=== PATIENT | female | born 1930 | race Caucasian/White ===

== ENCOUNTER 2017-10-05 12:04 | Emergency (ER) | payer MEDICARE, OTHER ==
--- NOTE | 2017-10-05 13:04 | CT ---
Head CT Technique: Multiple axial sections through the brain were obtained. Intravenous contrast was not utilized. Comparison: Prior head CT study of 07/20/15. Findings: Soft tissue swelling and hematoma is seen within the posterior right scalp. Ventricles along with basal cisterns and sulci over the convexities are mildly prominent. Diminished density is noted within the periventricular and subcortical white matter compatible with mild small vessel ischemic demyelination change. No other abnormal parenchymal densities are seen. No evidence of intracranial hemorrhage. No midline shift or mass effect is seen. Bone window settings were reviewed which shows no acute calvarial abnormality. Impression: 1. Soft tissue swelling and hematoma within the posterior right scalp. 2. Senescent change as noted above. 3. No acute intracranial abnormality is identified. No skull fracture is seen. Diagnostic code #3
--- NOTE | 2017-10-05 14:06 | CR ---
Chest: AP view of the chest was obtained. Comparison: No prior chest x-ray. Heart size is normal. Mild tortuosity of the thoracic aorta is seen. Central lung markings are slightly increased believed to be accentuated from AP technique. Lungs otherwise are clear. Bony structures are osteopenic. Surgical clips likely from prior cholecystectomy are seen within the upper right abdomen. Impression: 1. Nothing acute is appreciated on AP chest x-ray. Diagnostic code #2
--- NOTE | 2017-10-05 14:06 | CR ---
Pelvis and right hip: AP view of the pelvis was obtained as well as crosstable lateral view of the right hip. Comparison: Previous left hip study of 01/14/10. Bilateral hip prosthesis are noted which show normal alignment. Fractures are seen within the superior right pubic ramus as well as within the superior and inferior left pubic ramus. These appear to be acute. Incidental sclerosis within the pubic symphysis is noted. No additional fracture or other abnormality is appreciated. Impression: 1. Pubic rami fracture as noted above. 2. Bilateral hip prosthesis which are normal in alignment. 3. No other acute abnormality is appreciated. Diagnostic code #3
[2017-10-05] MEDS ORDERED: traMADol 50 MG Tab PO ONE (14:50)
--- NOTE | 2017-10-05 14:50 | EDM.PDOC ---
ED HPI GENERAL MEDICAL PROBLEM - General Chief Complaint: Lower Extremity Injury/Pain Stated Complaint: FALL/HIP INJURY Time Seen by Provider: 10/05/17 12:25 Source of Information: Reports: Patient, Family (daughter) History Limitations: Reports: No Limitations - History of Present Illness INITIAL COMMENTS - FREE TEXT/NARRATIVE: 87-year-old female presents for evaluation and treatment of injury sustained from a fall. Patient reports around 0900 this morning she was in the garage when she stumbled. She is primarily complaining of pain to her pelvis and both hips. States the pain radiates into her groin. She has a skin tear to her right arm and she also bumped her head. She is reports significant pain with standing and walking. Unsure if she had any syncope. No chest pain, neck pain, nausea or vomiting. She states that she did possibly feel dizzy. Patient reports and she fell she landed on her right side. Patient has a history of thrombocytopenia. She currently takes baby aspirin daily. No other blood thinners. Patient has a history of bilateral hip replacements. Onset: Today Location: Reports: Pelvis Pelvic Pain Score (Numeric/FACES): 6 - Related Data Allergies Allergy/AdvReac Type Severity Reaction Status Date / Time No Known Allergies Allergy Verified 10/05/17 12:14 Past Medical History - Past Health History Medical/Surgical History: Denies Medical/Surgical History Cardiovascular History: Reports: High Cholesterol, Hypertension Genitourinary History: Reports: UTI, Recurrent Psychiatric History: Reports: None - Past Surgical History GI Surgical History: Reports: Cholecystectomy Musculoskeletal Surgical History: Reports: Hip Replacement Social & Family History - Tobacco Use Smoking Status *Q: Unknown Ever Smoked Review of Systems - Review of Systems Review Of Systems: See Below Cardiovascular: Denies: Chest Pain GI/Abdominal: Denies: Nausea, Vomiting Musculoskeletal: Denies: Neck Pain Skin: Reports: Wound (skin tear right arm) Neurological: Reports: Dizziness (unsure). Denies: Headache, Syncope (unsure) ED EXAM, GENERAL - Physical Exam Exam: See Below Exam Limited By: No Limitations General Appearance: Alert, WD/WN, Mild Distress Eye Exam: Bilateral Eye: EOMI, Normal Inspection, PERRL Ears: Normal External Exam, Normal Canal, Normal TMs Nose: Normal Inspection Throat/Mouth: Normal Inspection, Normal Lips, Normal Voice, No Airway Compromise Head: Atraumatic, Normocephalic Neck: Normal Inspection, Supple, Non-Tender, Full Range of Motion Respiratory/Chest: No Respiratory Distress, Lungs Clear, Normal Breath Sounds Cardiovascular: Normal Peripheral Pulses, Regular Rate, Rhythm, No Murmur Peripheral Pulses: 2+: Radial (L), Radial (R), Posterior Tibial (L), Posterior Tibial (R) GI/Abdominal: Soft, Non-Tender Extremities: Normal Inspection, Normal Range of Motion, Non-Tender, Other (no shortening of the limbs, no pain with internal and external roatation of the bilateral hips) Neurological: Alert, Oriented, Normal Cognition Psychiatric: Normal Affect, Normal Mood Skin Exam: Warm, Dry, Normal Color, Wound/Incision (1cm skin tear right posterior forearm) EKG INTERPRETATION EKG Date: 10/05/17 Time: 13:15 Rhythm: NSR Rate (Beats/Min): 77 [place]: Normal P-Wave: Present QRS: Normal ST-T: Normal QT: Normal EKG Interpretation Comments: NSR at 77 bpm. Early "R" wave transition. Decreased voltage limb leads. Reviewed by myself and Dr. Pierson. Course - Vital Signs Last Recorded V/S: Last Vital Signs Temp 36.0 C 10/05/17 12:14 Pulse 67 10/05/17 12:14 Resp 18 10/05/17 12:14 BP 174/81 H 10/05/17 12:14 Pulse Ox 98 10/05/17 12:14 - Orders/Labs/Meds Labs: Laboratory Tests 10/05/17 10/05/17 Range/Units 13:05 13:05 WBC 9.80 (3.98-10.04) K/mm3 RBC 4.40 (3.98-5.22) M/mm3 Hgb 12.6 (11.2-15.7) gm/L Hct 38.2 (34.1-44.9) % MCV 86.8 (79.4-94.8) fl MCH 28.6 (25.6-32.2) pg MCHC 33.0 (32.2-35.5) g/dl RDW Std Deviation 42.7 (36.4-46.3) fL Plt Count 117 L (182-369) K/mm3 MPV 9.7 (9.4-12.3) fl Neut % (Auto) 85.6 H (34.0-71.1) % Lymph % (Auto) 8.8 L (19.3-51.7) % Major % (Auto) 4.5 L (4.7-12.5) % Eos % (Auto) 0.6 L (0.7-5.8) Baso % (Auto) 0.1 (0.1-1.2) % Neut # (Auto) 8.39 H (1.56-6.13) K/mm3 Lymph # (Auto) 0.86 L (1.18-3.74) K/mm3 Major # (Auto) 0.44 H (0.24-0.36) K/mm3 Eos # (Auto) 0.06 (0.04-0.36) K/mm3 Baso # (Auto) 0.01 (0.01-0.08) K/mm3 Manual Slide Review Abnormal smear Sodium 138 (136-145) mEq/L Potassium 4.7 (3.5-5.1) mEq/L Chloride 104 (98-107) mEq/L Carbon Dioxide 26 (21-32) mEq/L Anion Gap 12.7 (5-15) BUN 21 H (7-18) mg/dL Creatinine 1.2 H (0.55-1.02) mg/dL Est Cr Clr Drug Dosing 26.62 mL/min Estimated GFR (MDRD) 43 (>60) mL/min BUN/Creatinine Ratio 17.5 (14-18) Glucose 100 (83-115) mg/dL Calcium 9.1 (8.5-10.1) mg/dL Total Bilirubin 1.0 (0.2-1.0) mg/dL AST 28 (15-37) U/L ALT 22 (14-59) U/L Alkaline Phosphatase 61 (46-116) U/L Troponin I < 0.017 (0.00-0.056) ng/mL Total Protein 7.3 (6.4-8.2) g/dl Albumin 3.8 (3.4-5.0) g/dl Globulin 3.5 gm/dL Albumin/Globulin Ratio 1.1 (1-2) Meds: Medications Discontinued Medications Generic Name Dose Route Start Last Admin Trade Name Freq PRN Reason Stop Dose Admin Tramadol HCl 50 mg 10/05/17 14:50 10/05/17 14:55 Ultram PO 10/05/17 14:51 50 mg ONETIME ONE Administration - Radiology Interpretation Free Text/Narrative:: chest xray shows no acute intrathroacic process. Head CT without contrast shows soft tissue swelling and a hematoma to the right posterior scalp. xray of the pelvis shows a right pubic rami fracture. Bilateral hip prosthesis with normal alignment. - Re-Assessments/Exams Free Text/Narrative Re-Assessment/Exam: 10/05/17 14:50 I reviewed the labs, EKG and imaging with the patient and her daughter. She has a walker at home. I will have her follow-up with orthopedics. Discharge instructions as documented. Departure - Departure Time of Disposition: 14:49 Disposition: Home, Self-Care 01 Condition: Fair Clinical Impression: Pubic ramus fracture - Discharge Information Referrals: Ross Alvares MD [Primary Care Provider] - Dylan Carlson MD [Physician] - Forms: ED Department Discharge Additional Instructions: Follow-up with orthopedics within 2 weeks for recheck. Recommend Dr. Sanchez. Call [phone] schedule with him. Use a walker at all times when up and moving around. Rest. May use [id number] Tylenol or Motrin seen for pain relief. For pain not relieved by Tylenol or Motrin may take tramadol 1 tab every 4-[address] operate machinery within 12 hours of taking tramadol. Tramadol can be habit-forming, recommend you take as few these as needed to control your pain. You may use ice for additional pain relief. Please return to ER if your symptoms change or worsen.
== END 2017-10-05 15:03 | disposition home or self-care (01) ==
LOC: JD.ED 12:04
DX: S32.591A Other specified fracture of right pubis, initial encounter for closed fracture (principal); S51.811A Laceration without foreign body of right forearm, initial encounter; S00.03XA Contusion of scalp, initial encounter; D69.6 Thrombocytopenia, unspecified; I10 Essential (primary) hypertension; E78.00 Pure hypercholesterolemia, unspecified; Z79.82 Long term (current) use of aspirin; Z96.643 Presence of artificial hip joint, bilateral; W19.XXXA Unspecified fall, initial encounter
CPT/HCPCS: 36415; 70450; 71045; 73502; 80053; 84484; 85025; 93005; 99284; A9270; 93010

== ENCOUNTER 2020-01-04 21:44 | Inpatient (IN) | payer MEDICARE, OTHER ==
[2020-01-04] MEDS ORDERED: Sodium Chloride 0.9% 1,000 ML IV SCH ×2 (22:15→23:45)
[2020-01-04] MEDS ORDERED: Ondansetron 4 MG/2 ML SDV IVPUSH ONE (22:15)
--- NOTE | 2020-01-04 22:15 | EDM.PDOC ---
ED HPI GENERAL MEDICAL PROBLEM - General Chief Complaint: Gastrointestinal Problem Stated Complaint: VOMITTING SICK TO STOMACH Time Seen by Provider: 01/04/20 21:58 Source of Information: Reports: Patient History Limitations: Reports: No Limitations - History of Present Illness INITIAL COMMENTS - FREE TEXT/NARRATIVE: This is an 89-year-old female. Yesterday she indicates that she had a bunch of friends over the brought lots of food and she had 2 big meals and she thinks they had MSG in them. Around midnight she had onset of nausea and vomiting. She is vomited about 8 times since midnight. She did have a small stool this morning and she passed some gas this afternoon. The vomitus is sort of a dark yellow-brown but there are no coffee grounds noted. She has had no diarrhea. She complains of generalized abdominal pain and not specific. She says she has not been able to drink any water since every time she drinks water she vomits. Only 2 surgeries she had are an appendix and gallbladder. She denies any history of abdominal obstruction. She denies any fever or chills and no cough. Patient indicates her last urination was 20 minutes before coming to the ER. Abdomen Pain Score (Numeric/FACES): 2 - Related Data Allergies Allergy/AdvReac Type Severity Reaction Status Date / Time No Known Allergies Allergy Verified 01/04/20 21:54 Home Meds: Home Meds Aspirin [Halfprin] 81 mg PO DAILY 01/04/20 [History] Cholecalciferol (Vitamin D3) [Vitamin D3] 2,000 unit PO DAILY 01/04/20 [History] Denosumab [Prolia] 60 mg .XX ASDIRECTED 01/04/20 [History] Fesoterodine Fumarate [Toviaz] 4 mg PO DAILY 01/04/20 [History] Losartan [Cozaar] 50 mg PO DAILY 01/04/20 [History] Omeprazole 20 mg PO ONETIME 01/04/20 [History] Pravastatin [Pravachol] 40 mg PO DAILY 01/04/20 [History] Past Medical History - Past Health History Medical/Surgical History: Denies Medical/Surgical History HEENT History: Reports: Cataract, Hard of Hearing, Impaired Vision Other HEENT History: Wears glasses Cardiovascular History: Reports: High Cholesterol, Hypertension Genitourinary History: Reports: UTI, Recurrent 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: Psychiatric History: Reports: None - Past Surgical History HEENT Surgical History: Reports: Cataract Surgery, Tonsillectomy GI Surgical History: Reports: Cholecystectomy Musculoskeletal Surgical History: Reports: Hip Replacement Social & Family History - Tobacco Use Smoking Status *Q: Never Smoker - Recreational Drug Use Recreational Drug Use: No ED ROS GENERAL - Review of Systems Review Of Systems: See Below Constitutional: Denies: Fever, Chills HEENT: Reports: No Symptoms Respiratory: Denies: Shortness of Breath, Cough Cardiovascular: Denies: Chest Pain Endocrine: Reports: No Symptoms GI/Abdominal: Reports: Abdominal Pain, Constipation, Nausea, Vomiting. Denies: Diarrhea : Reports: No Symptoms Musculoskeletal: Reports: Other (Generalized arthritic type pain) Skin: Reports: No Symptoms Neurological: Reports: No Symptoms Psychiatric: Reports: No Symptoms Hematologic/Lymphatic: Reports: No Symptoms ED EXAM, GI/ABD - Physical Exam Exam: See Below Exam Limited By: No Limitations General Appearance: Alert, WD/WN, No Apparent Distress Eyes: Bilateral: Normal Appearance Ears: Normal External Exam, Other (Patient has bilateral hearing aids noted) Nose: Normal Inspection Throat/Mouth: Normal Inspection, Normal Lips, Normal Voice, No Airway Compromise , Other (Upper and lower dentures, her mucous membranes are tacky but not dry) Head: Normocephalic Neck: Supple Respiratory/Chest: No Respiratory Distress, Lungs Clear, Normal Breath Sounds Cardiovascular: Regular Rate, Rhythm, No Murmur GI/Abdominal Exam: Soft, Other (The patient is not distended, she seems to be soft with no evidence of localized tenderness on palpation, there is no rebound there is no rigidity there is distention seems to be tympanic like she is got trapped air in her bowel) Back Exam: Full Range of Motion Extremities: Normal Inspection, Normal Range of Motion Neurological: Alert, Oriented Psychiatric: Normal Affect, Normal Mood Skin Exam: Warm, Dry Course - Vital Signs Last Recorded V/S: Last Vital Signs Temp 98.6 F 01/04/20 21:55 Pulse 78 01/04/20 21:55 Resp 18 01/04/20 21:55 BP 189/89 H 01/04/20 23:25 Pulse Ox 93 L 01/04/20 21:55 - Orders/Labs/Meds Orders: Active Orders 24 hr Category Date Time Status Abdomen 2V AP Flat Upright [CR] Stat Exams 01/05/20 01:12 Taken Abdomen Pelvis w Cont [CT] Stat Exams 01/05/20 02:08 Taken Lactated Ringers [Ringers, Lactated] 1,000 ml Med 01/05/20 04:30 Active IV ASDIRECTED Sodium Chloride 0.9% [Normal Saline] 1,000 ml Med 01/04/20 22:15 Active IV ASDIRECTED Sodium Chloride 0.9% [Normal Saline] 1,000 ml Med 01/04/20 23:45 Active IV ASDIRECTED Sodium Chloride 0.9% [Saline Flush] Med 01/05/20 02:33 Active 10 ml FLUSH ONETIME PRN Medication Orders Sodium Chloride (Normal Saline) 1,000 mls @ 1,000 mls/hr IV ASDIRECTED AJ Last Admin: 01/04/20 22:28 Dose: 1,000 mls/hr Sodium Chloride (Normal Saline) 1,000 mls @ 1,000 mls/hr IV ASDIRECTED AJ Last Admin: 01/04/20 23:47 Dose: 1,000 mls/hr Lactated Ringer's (Ringers, Lactated) 1,000 mls @ 75 mls/hr IV ASDIRECTED AJ Sodium Chloride (Saline Flush) 10 ml FLUSH ONETIME PRN PRN Reason: KEEP VEIN OPEN Last Admin: 01/05/20 03:27 Dose: 10 ml Labs: Laboratory Tests 01/04/20 01/04/20 01/05/20 Range/Units 22:11 22:11 00:25 WBC 8.45 (3.98-10.04) K/mm3 RBC 4.97 (3.98-5.22) M/mm3 Hgb 14.1 D (11.2-15.7) gm/dl Hct 43.2 (34.1-44.9) % MCV 86.9 (79.4-94.8) fl MCH 28.4 (25.6-32.2) pg MCHC 32.6 (32.2-35.5) g/dl RDW Std Deviation 43.2 (36.4-46.3) fL Plt Count 98 L (182-369) K/mm3 MPV 10.8 (9.4-12.3) fl Neut % (Auto) 90.0 H (34.0-71.1) % Lymph % (Auto) 6.4 L (19.3-51.7) % [place] % (Auto) 3.4 L (4.7-12.5) % Eos % (Auto) 0.1 L (0.7-5.8) Baso % (Auto) 0.0 L (0.1-1.2) % Neut # (Auto) 7.60 H (1.56-6.13) K/mm3 Lymph # (Auto) 0.54 L (1.18-3.74) K/mm3 [place] # (Auto) 0.29 (0.24-0.36) K/mm3 Eos # (Auto) 0.01 L (0.04-0.36) K/mm3 Baso # (Auto) 0.00 L (0.01-0.08) K/mm3 Manual Slide Review Abnormal smear Sodium 137 (136-145) mEq/L Potassium 4.2 (3.5-5.1) mEq/L Chloride 100 (98-107) mEq/L Carbon Dioxide 28 (21-32) mEq/L Anion Gap 13.2 (5-15) BUN 17 (7-18) mg/dL Creatinine 1.2 H (0.55-1.02) mg/dL Est Cr Clr Drug Dosing 27.98 mL/min Estimated GFR (MDRD) 42 (>60) mL/min BUN/Creatinine Ratio 14.2 (14-18) Glucose 175 H (83-115) mg/dL Calcium 9.5 (8.5-10.1) mg/dL Total Bilirubin 1.4 H (0.2-1.0) mg/dL AST 19 (15-37) U/L ALT 16 (14-59) U/L Alkaline Phosphatase 50 (46-116) U/L Total Protein 7.6 (6.4-8.2) g/dl Albumin 4.0 (3.4-5.0) g/dl Globulin 3.6 gm/dL Albumin/Globulin Ratio 1.1 (1-2) Lipase 107 (73-393) U/L Urine Color Yellow (Yellow) Urine Appearance Clear (Clear) Urine pH 7.0 (5.0-8.0) Ur Specific Foley 1.020 (1.005-1.030) Urine Protein 2+ H (Negative) Urine Glucose (UA) Negative (Negative) Urine Ketones 1+ H (Negative) Urine Occult Blood 2+ H (Negative) Urine Nitrite Negative (Negative) Urine Bilirubin Negative (Negative) Urine Urobilinogen 0.2 (0.2-1.0) Ur Leukocyte Esterase Negative (Negative) Urine RBC 5-10 H (0-5) /hpf Urine WBC 0-5 (0-5) /hpf Ur Epithelial Cells 0-5 (0-5) /hpf Urine Bacteria Not seen (FEW) /hpf Urine Mucus Not seen (FEW) /hpf Meds: Medications Generic Name Dose Route Start Last Admin Trade Name Twan PRN Reason Stop Dose Admin Sodium Chloride 1,000 mls @ 1,000 mls/hr 01/04/20 22:15 01/04/20 22:28 Normal Saline IV 1,000 mls/hr ASDIRECTED AJ Administration Sodium Chloride 1,000 mls @ 1,000 mls/hr 01/04/20 23:45 01/04/20 23:47 Normal Saline IV 1,000 mls/hr ASDIRECTED AJ Administration Lactated Ringer's 1,000 mls @ 75 mls/hr 01/05/20 04:30 Ringers, Lactated IV ASDIRECTED AJ Sodium Chloride 10 ml 01/05/20 02:33 01/05/20 03:27 Saline Flush FLUSH 10 ml ONETIME PRN Administration KEEP VEIN OPEN Discontinued Medications Generic Name Dose Route Start Last Admin Trade Name Twan PRN Reason Stop Dose Admin Diatrizoate Meglum/Diatrizoate Sod 90 ml 01/05/20 02:33 01/05/20 03:27 Gastrografin 37% PO 01/05/20 02:34 90 ml ONETIME ONE Administration Iopamidol 100 ml 01/05/20 02:33 01/05/20 03:27 Isovue-300 (61%) IVPUSH 01/05/20 02:34 100 ml ONETIME ONE Administration Losartan Potassium 50 mg 01/04/20 23:16 01/04/20 23:25 Cozaar PO 01/04/20 23:17 50 mg ONETIME STA Administration Ondansetron HCl 4 mg 01/04/20 22:15 01/04/20 22:28 Zofran IVPUSH 01/04/20 22:16 4 mg ONETIME ONE Administration - Radiology Interpretation Free Text/Narrative:: Flat and upright shows ileus with multiple air-fluid levels. There is no other acute abnormality noted - Re-Assessments/Exams Free Text/Narrative Re-Assessment/Exam: 01/05/20 01:51 I reexamined the patient and she still is somewhat distended though she is not complaining of any significant pain. After looking at the x-ray showing some multiple air-fluid levels and a big stomach bubble I am concerned that she might have an early obstruction. 01/05/20 02:03 02 the patient regarding this ileus and I am little concerned since she has been passing stool or gas that she might have an early obstruction. Therefore we will going to give her oral and IV contrast for a CT of her abdomen. I am not certain she will keep the oral down but we are going to try. I also spoke to her daughter regarding what were doing and why were doing it and she was good with it. 01/05/20 04:26 With the daughter regarding the CT scan results that she has a small bowel obstruction in the right lower quadrant. I also spoke with Gonzalez who is the surgeon senior loss control specialist and he agrees to put her in the hospital for further evaluation and treatment. We did place an NG tube at low intermittent suction. Departure - Departure Time of Disposition: 04:27 Disposition: Admitted As Inpatient 67 Condition: Fair Clinical Impression: Small bowel obstruction Nausea and vomiting Qualifiers: Vomiting type: unspecified Vomiting Intractability: non-intractable Qualified Code(s): R11.2 - Nausea with vomiting, unspecified Abdominal pain Qualifiers: Abdominal location: unspecified location Qualified Code(s): R10.9 - Unspecified abdominal pain - Discharge Information Sepsis Event Note - Evaluation Sepsis Screening Result: No Definite Risk - Focused Exam Vital Signs: Vital Signs Temp Pulse Resp BP BP Pulse Ox 01/04/20 23:25 189/89 H 01/04/20 21:55 98.6 F 78 18 197/104 H 93 L Date Exam was Performed: 01/05/20 Time Exam was Performed: 04:25 ED Communication - ED Communication Date/Time Date: 01/05/20 Time Called: 04:26 - Discussed Case With (1) Discussed Case With (1): Admitting Provider Person/s Notified (1): Raul Roth (I spoke to the surgeon and he agrees to admit for further evaluation and treatment) - My Orders Last 24 Hours: My Active Orders 01/04/20 22:15 Sodium Chloride 0.9% [Normal Saline] 1,000 ml IV ASDIRECTED 01/04/20 23:45 Sodium Chloride 0.9% [Normal Saline] 1,000 ml IV ASDIRECTED 01/05/20 01:12 Abdomen 2V AP Flat Upright [CR] Stat 01/05/20 02:08 Abdomen Pelvis w Cont [CT] Stat 01/05/20 02:33 Sodium Chloride 0.9% [Saline Flush] 10 ml FLUSH ONETIME PRN 01/05/20 04:30 Lactated Ringers [Ringers, Lactated] 1,000 ml IV ASDIRECTED - Assessment/Plan Last 24 Hours: My Active Orders 01/04/20 22:15 Sodium Chloride 0.9% [Normal Saline] 1,000 ml IV ASDIRECTED 01/04/20 23:45 Sodium Chloride 0.9% [Normal Saline] 1,000 ml IV ASDIRECTED 01/05/20 01:12 Abdomen 2V AP Flat Upright [CR] Stat 01/05/20 02:08 Abdomen Pelvis w Cont [CT] Stat 01/05/20 02:33 Sodium Chloride 0.9% [Saline Flush] 10 ml FLUSH ONETIME PRN 01/05/20 04:30 Lactated Ringers [Ringers, Lactated] 1,000 ml IV ASDIRECTED
[2020-01-04] MEDS ORDERED: Losartan 25 MG Tab PO STA (23:16)
[2020-01-05] MEDS ORDERED: Diatrizoate Meglumine/Diatrizoate Sodium 37% 120 ML Bottle PO ONE (02:33)
[2020-01-05] MEDS ORDERED: Sodium Chloride 0.9% 10 ML Syringe FLUSH PRN (02:33)
[2020-01-05] MEDS ORDERED: Iopamidol 612 MG/ML 100 ML Bottle IVPUSH ONE (02:33)
[2020-01-05] MEDS ORDERED: hydrALAZINE 20 MG/ML SDV IVPUSH PRN (04:26)
[2020-01-05] MEDS: Lactated Ringers 1,000 ML IV SCH ×2 (04:33→18:40)
[2020-01-05] MEDS ORDERED: Ondansetron 4 MG/2 ML SDV IVPUSH PRN (05:37)
--- NOTE | 2020-01-05 08:18 | CR ---
Chest: Portable view of the chest was obtained. Comparison: Prior abdominal x-ray of 01/05/20. Prior chest x-ray of 10/05/17. Nasogastric tube is seen. Tip lie slightly past the gastroesophageal junction. NG tube should be advanced by another 7-8 cm for optimal position. Heart is enlarged. Tortuous thoracic aorta is seen. Lung markings are increased which appear stable. Bony structures are grossly intact. Previous cholecystectomy is noted. Contrast noted within the kidneys from CT study performed earlier on the same day. Impression: 1. Tip of nasogastric tube lying slightly past the gastroesophageal junction which should be advanced by another 7-8 cm for optimal position. 2. Other findings as noted above believed to be stable. Diagnostic code #3 This report was dictated in [facility]T
--- NOTE | 2020-01-05 08:44 | PCM.HP.2 ---
H&P History of Present Illness - General Date of Service: 01/05/20 Admit Problem/Dx: Admission Diagnosis/Problem Admission Diagnosis/Problem Small bowel obstruction Source of Information: Patient History Limitations: Reports: No Limitations - History of Present Illness Duration of Symptoms: Reports: Day(s): Other HPI/Comments: Mrs. Newell is an 89 yo woman presenting with abdominal pain, distention, vomiting and obstipation that began yesterday. She has not had symptoms like this before. She has a CT scan on admission showing evidence of small bowel obstruction with transition point involving the ileum near the right lateral mid abdomen. An NG tube was placed in the emergency room and since then there has been over 1 L of output. She experienced symptomatic relief with NG decompression. She has a history of open cholecystectomy and open appendectomy. There is no evidence of inguinal or femoral or incisional hernia. She currently appears well clinically. Abdomen Pain Score (Numeric/FACES): 2 - Related Data Allergies/Adverse Reactions: Allergies Allergy/AdvReac Type Severity Reaction Status Date / Time No Known Allergies Allergy Verified 01/04/20 21:54 Home Medications: Home Meds Aspirin [Halfprin] 81 mg PO DAILY 01/04/20 [History] Cholecalciferol (Vitamin D3) [Vitamin D3] 2,000 unit PO DAILY 01/04/20 [History] Denosumab [Prolia] 60 mg .XX ASDIRECTED 01/04/20 [History] Fesoterodine Fumarate [Toviaz] 4 mg PO DAILY 01/04/20 [History] Losartan [Cozaar] 50 mg PO BEDTIME 01/04/20 [History] Omeprazole 20 mg PO DAILY 01/04/20 [History] Pravastatin [Pravachol] 40 mg PO DAILY 01/04/20 [History] Sulfamethoxazole/Trimethoprim [Bactrim 400-80 MG] 1 tab PO DAILY 01/05/20 [ History] Past Medical History - Past Health History Medical/Surgical History: Denies Medical/Surgical History HEENT History: Reports: Cataract, Hard of Hearing, Impaired Vision Other HEENT History: Wears glasses and hearing aides Cardiovascular History: Reports: High Cholesterol, Hypertension Genitourinary History: Reports: UTI, Recurrent 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: Musculoskeletal History: Reports: Arthritis Psychiatric History: Reports: None - Infectious Disease History Infectious Disease History: Reports: Chicken Pox, Measles, Mumps - Past Surgical History HEENT Surgical History: Reports: Cataract Surgery, Tonsillectomy Cardiovascular Surgical History: Reports: None GI Surgical History: Reports: Cholecystectomy Female Surgical History: Reports: None Musculoskeletal Surgical History: Reports: None, Hip Replacement, Other (See Below) Other Musculoskeletal Surgeries/Procedures:: Bilat Social & Family History - Family History Family Medical History: Noncontributory - Tobacco Use Smoking Status *Q: Never Smoker Second Hand Smoke Exposure: No - Caffeine Use Caffeine Use: Reports: None - Recreational Drug Use Recreational Drug Use: No H&P Review of Systems - Review of Systems: Review Of Systems: See Below General: Reports: Malaise HEENT: Reports: No Symptoms Pulmonary: Reports: No Symptoms Cardiovascular: Reports: No Symptoms Gastrointestinal: Reports: Abdominal Pain, Distension, Nausea, Vomiting Genitourinary: Reports: Other (recurrent UTI) Musculoskeletal: Reports: No Symptoms Skin: Reports: No Symptoms Psychiatric: Reports: No Symptoms Neurological: Reports: No Symptoms Hematologic/Lymphatic: Reports: Easy Bleeding, Easy Bruising Exam - Exam Exam: See Below - Vital Signs Vital Signs: Last Vital Signs Temp 36.4 C 01/05/20 07:44 Pulse 98 01/05/20 07:44 Resp 20 01/05/20 07:44 BP 149/86 H 01/05/20 07:44 Pulse Ox 95 01/05/20 07:44 Weight: 59.058 kg - Exam General: Alert, Oriented, Cooperative HEENT: Conjunctiva Clear Neck: Trachea Midline Lungs: Normal Respiratory Effort Cardiovascular: Regular Rate GI/Abdominal Exam: Soft, Distended, Tender, Other (dull to percussion, no palpable mass. Scar from open cholecystectomy and right hip surgery) Skin: Warm, Dry Neuro Extensive - Mental Status: Alert, Oriented x3 Psychiatric: Normal Mood - Patient Data Lab Results Last 24 hrs: Laboratory Results - last 24 hr 01/04/20 01/04/20 01/05/20 Range/Units 22:11 22:11 00:25 WBC 8.45 (3.98-10.04) K/mm3 RBC 4.97 (3.98-5.22) M/mm3 Hgb 14.1 D (11.2-15.7) gm/dl Hct 43.2 (34.1-44.9) % MCV 86.9 (79.4-94.8) fl MCH 28.4 (25.6-32.2) pg MCHC 32.6 (32.2-35.5) g/dl RDW Std Deviation 43.2 (36.4-46.3) fL Plt Count 98 L (182-369) K/mm3 MPV 10.8 (9.4-12.3) fl Neut % (Auto) 90.0 H (34.0-71.1) % Lymph % (Auto) 6.4 L (19.3-51.7) % [place] % (Auto) 3.4 L (4.7-12.5) % Eos % (Auto) 0.1 L (0.7-5.8) Baso % (Auto) 0.0 L (0.1-1.2) % Neut # (Auto) 7.60 H (1.56-6.13) K/mm3 Lymph # (Auto) 0.54 L (1.18-3.74) K/mm3 [place] # (Auto) 0.29 (0.24-0.36) K/mm3 Eos # (Auto) 0.01 L (0.04-0.36) K/mm3 Baso # (Auto) 0.00 L (0.01-0.08) K/mm3 Manual Slide Review Abnormal smear Sodium 137 (136-145) mEq/L Potassium 4.2 (3.5-5.1) mEq/L Chloride 100 (98-107) mEq/L Carbon Dioxide 28 (21-32) mEq/L Anion Gap 13.2 (5-15) BUN 17 (7-18) mg/dL Creatinine 1.2 H (0.55-1.02) mg/dL Est Cr Clr Drug Dosing 27.98 mL/min Estimated GFR (MDRD) 42 (>60) mL/min BUN/Creatinine Ratio 14.2 (14-18) Glucose 175 H (83-115) mg/dL Calcium 9.5 (8.5-10.1) mg/dL Total Bilirubin 1.4 H (0.2-1.0) mg/dL AST 19 (15-37) U/L ALT 16 (14-59) U/L Alkaline Phosphatase 50 (46-116) U/L Total Protein 7.6 (6.4-8.2) g/dl Albumin 4.0 (3.4-5.0) g/dl Globulin 3.6 gm/dL Albumin/Globulin Ratio 1.1 (1-2) Lipase 107 (73-393) U/L Urine Color Yellow (Yellow) Urine Appearance Clear (Clear) Urine pH 7.0 (5.0-8.0) Ur Specific [place] 1.020 (1.005-1.030) Urine Protein 2+ H (Negative) Urine Glucose (UA) Negative (Negative) Urine Ketones 1+ H (Negative) Urine Occult Blood 2+ H (Negative) Urine Nitrite Negative (Negative) Urine Bilirubin Negative (Negative) Urine Urobilinogen 0.2 (0.2-1.0) Ur Leukocyte Esterase Negative (Negative) Urine RBC 5-10 H (0-5) /hpf Urine WBC 0-5 (0-5) /hpf Ur Epithelial Cells 0-5 (0-5) /hpf Urine Bacteria Not seen (FEW) /hpf Urine Mucus Not seen (FEW) /hpf Result Diagrams: 01/04/20 22:11 01/04/20 22:11 Sepsis Event Note - Evaluation Sepsis Screening Result: No Definite Risk - Focused Exam Vital Signs: Vital Signs Temp Temp Pulse Pulse Resp BP BP 01/05/20 07:44 36.4 C 98 20 149/86 H 01/05/20 05:34 36.7 C 102 H 20 140/70 01/04/20 23:25 189/89 H 01/04/20 21:55 37.0 C 78 18 197/104 H Pulse Ox 01/05/20 07:44 95 01/05/20 05:34 93 L 01/04/20 23:25 01/04/20 21:55 93 L Date Exam was Performed: 01/05/20 Time Exam was Performed: 08:35 *Q Meaningful Use (ADM) - VTE Risk Assess *Q Each Risk Factor Represents 3 Points: Age 75 Years or Greater Total Score 3 Point Risk Factors: 3 Problem List Initiated/Reviewed/Updated: Yes Orders Last 24hrs: Active Orders 24 hr Category Date Time Status Patient Status [ADT] Routine ADT 01/05/20 04:30 Active Ambulate [RC] PER UNIT ROUTINE Care 01/05/20 08:32 Active Antiembolic Devices [RC] PER UNIT ROUTINE Care 01/05/20 08:30 Active NG [Gastrointestinal Tube Mgmt] [RC] QSHIFT Care 01/05/20 05:35 Active Oxygen Therapy Adult [Oxygen Therapy] [RC] ASDIRECTED Care 01/05/20 06:27 Active RT Incentive Spirometry [RC] Q1HWA Care 01/05/20 08:31 Active Up With Assistance [RC] BID Care 01/05/20 05:34 Active NPO [Nothing Per Oral Diet] [DIET] Diet 01/05/20 Breakfast Active Abdomen 2V AP Flat Upright [CR] Stat Exams 01/05/20 01:12 Taken Abdomen Pelvis w Cont [CT] Stat Exams 01/05/20 02:08 Taken CBC WITH AUTO DIFF [HEME] AM Lab 01/06/20 05:11 Ordered CMP [COMPREHENSIVE METABOLIC PN,CMP] [CHEM] Routine Lab 01/06/20 05:00 Ordered Heparin Sodium Med 01/05/20 08:30 Active 5,000 units SUBCUT Q8H Lactated Ringers [Ringers, Lactated] 1,000 ml Med 01/05/20 04:30 Active IV ASDIRECTED Ondansetron [Zofran] Med 01/05/20 05:37 Active 4 mg IVPUSH Q6H PRN Pantoprazole [ProTONIX IV] 40 mg Med 01/05/20 09:00 Active Sodium Chloride 0.9% [Normal Saline] 100 ml IV DAILY Sodium Chloride 0.9% [Saline Flush] Med 01/05/20 02:33 Active 10 ml FLUSH ONETIME PRN hydrALAZINE [Apresoline] Med 01/05/20 04:26 Active 5 mg IVPUSH Q2H PRN SCD [Sequential Compression Device] [OM.PC] Routine Oth 01/05/20 08:29 Ordered Code Status [Resuscitation Status] Routine Resus Stat 01/05/20 05:41 Ordered Medication Orders Heparin Sodium (Porcine) (Heparin Sodium) 5,000 units SUBCUT Q8H AJ Hydralazine HCl (Apresoline) 5 mg IVPUSH Q2H PRN PRN Reason: Hypertension Last Admin: 01/05/20 04:32 Dose: 5 mg Lactated Ringer's (Ringers, Lactated) 1,000 mls @ 75 mls/hr IV ASDIRECTED AJ Last Admin: 01/05/20 04:33 Dose: 75 mls/hr Pantoprazole Sodium 40 mg/ (Sodium Chloride) 100 mls @ 200 mls/hr IV DAILY AJ Ondansetron HCl (Zofran) 4 mg IVPUSH Q6H PRN PRN Reason: Nausea Sodium Chloride (Saline Flush) 10 ml FLUSH ONETIME PRN PRN Reason: KEEP VEIN OPEN Last Admin: 01/05/20 03:27 Dose: 10 ml Assessment/Plan Comment:: Small bowel obstruction in patient with history of laparotomy/cholecystectomy. Initial episode. Appears stable, in no distress. Plan for NG decompression, gentle fluid resuscitation and await return of bowel function. -incentive spirometry, regular ambulation -IVF @ 75 cc/hr. hydralazine prn HTN with SBP > 180 mm Hg. Hold home antihypertensives/diuretics -record NG output -hold bactrim for now; U/A on admission shows no sign of current UTI. monitor urine output. -heparin SC 5000 u q8h for dvt ppx. SCDs. -repeat labs in AM. -I reviewed the diagnosis with the patient and the plan for non-operative management. If she fails to show signs of resolution of obstruction within 72 hours, we will discuss the option of going to the OR for exploration and adhesiolysis in more detail. - Mortality Measure Prognosis:: Good
[2020-01-05] MEDS: Heparin Sodium 5,000 Units/ML Vial SUBCUT SCH ×2 (08:59→16:29)
[2020-01-05] MEDS ORDERED: Pantoprazole 40 MG in Sodium Chloride 0.9% 100 ML IV SCH (09:00)
[2020-01-05] MEDS: Pantoprazole 40 MG Vial IV SCH (10:09)
--- NOTE | 2020-01-05 13:33 | CR ---
Abdomen: Supine and upright views of the abdomen were obtained. Comparison: No prior abdominal x-ray is available. Large amount of fluid is seen within the stomach with air-fluid level. Bowel gas pattern otherwise appears within normal limits on plain film study. 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 Surgical clips are seen from prior cholecystectomy. Bony structures are osteopenic. Impression: 1. Fluid-filled stomach with air-fluid level. 2. Other findings believed to be incidental as noted above. Diagnostic code #3 This report was dictated in MDT
--- NOTE | 2020-01-05 13:33 | CT ---
CT abdomen and pelvis Technique: Multiple axial sections were obtained from above the dome of the diaphragm inferiorly through the pubic symphysis. Intravenous contrast was utilized. No oral contrast has been given. Delayed images were also obtained through the bladder. Comparison: Prior abdominal x-ray performed earlier on the same day (1:16 AM). Findings: Visualized lung bases show nothing acute. Liver contains no focal parenchymal abnormality. Spleen appears normal. Small amount of fluid is noted around the liver. Adrenal glands show no nodule. Surgical clips are seen from prior cholecystectomy. Kidneys show symmetric contrast enhancement. 2 small low density lesions are seen within the left kidney which are too small to characterize by Hounsfield unit measurements. Findings most likely due to small cortical cysts. Similar findings are noted within the right kidney. Fluid is noted within the distal esophagus. Increased fluid is noted within the stomach. Fluid filled small bowel is noted. Transition point appears within the right lower abdomen. Etiology of this small bowel obstruction is not seen and findings most likely are due to adhesions if patient has had prior abdominal surgery. Aorta shows atherosclerotic calcification without aneurysm. Atherosclerotic calcification continues into the iliac vessels. No retroperitoneal adenopathy or mesenteric abnormalities are seen. Small fat-containing umbilical hernia is noted. Artifact is noted with the pelvis from bilateral hip prosthesis. Scattered diverticuli are seen within the colon without findings of definite diverticulitis. Appendix not visualized with certainty. Delayed images shows contrast within the bladder. Bone window settings were reviewed which shows mild scattered degenerative change within the spine. Hemangioma appears to be present within L3. No acute osseous finding is appreciated. Impression: 1. Fluid-filled stomach as well as findings of small bowel obstruction with transition point within the right lower abdomen. Findings most likely represent obstruction from adhesions. Significant reflux of fluid into the esophagus is noted. 2. Small amount of ascites around the liver. 3. Other nonacute findings as described above. Diagnostic code #5 This report was dictated in MDT I agree with preliminary report from [facility], finalized on 01/05/20, 4:48 AM Central Daylight Time
[2020-01-06] MEDS: Heparin Sodium 5,000 Units/ML Vial SUBCUT SCH ×4 (02:32→23:57)
[2020-01-06] MEDS: Lactated Ringers 1,000 ML IV SCH (08:43)
--- NOTE | 2020-01-06 08:55 | PCM.SN.2 ---
- Free Text/Narrative Note: Hospital day 2 S: occasional episodes of bloating and abdominal pain. No flatus. O: AF-VSS No appreciable jaundice NG with over 1200 cc brown liquid output in 24 hrs Breathing comfortably on room air Abdomen slightly distended, soft, dull to percussion Overall lab work improved/ in normal range except total bilirubin, up from 1.4 to 1.9 mg/dL A: Small bowel obstruction in woman with history of laparotomy and cholecystectomy. Appears well clinically with NG decompression. P: Continued NG decompression and await return of bowel function Switch IV fluids to D5 1/2 NS w 20 mEq KCl Add on indirect bilirubin to monring labs; LFTs not suggestive of biliary obstruction or hepatic inflammation otherwise Up out of bed ambulating Discussed possible need for operative intervention within the next day or two if symptoms fail to resolve.
[2020-01-06] MEDS: Pantoprazole 40 MG Vial IV SCH (09:11)
[2020-01-06] MEDS: D5 1/2 NS w/ 20 mEq/L KCl 1,000 ML IV SCH ×2 (10:30→23:57)
[2020-01-06] MEDS ORDERED: Sodium Chloride 0.9% 500 ML IV ONE (19:42)
--- NOTE | 2020-01-07 07:55 | PCM.SN.2 ---
- Free Text/Narrative Note: S: no acute events overnight. Reports fatigue. No abdominal pain. No flatus. 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 Appears clinically well, but no sign of resolution of obstruction at this point. P: I discussed the plan of care with the patient and her daughter this morning and answered all questions to their satisfaction. We will reassess this evening, and if the patient still has significant NG output and no reported flatus, we will plan for diagnostic laparoscopy/lysis of adhesions tomorrow morning.
[2020-01-07] MEDS: Heparin Sodium 5,000 Units/ML Vial SUBCUT SCH ×2 (08:13→15:46)
[2020-01-07] MEDS: Pantoprazole 40 MG Vial IV SCH (08:14)
[2020-01-07] MEDS: Benzocaine 20% Oral Spray 59.2 ML Canister MUCMEM PRN ×3 (08:14→15:26)
[2020-01-07] MEDS: D5 1/2 NS w/ 20 mEq/L KCl 1,000 ML IV SCH (13:54)
--- NOTE | 2020-01-07 14:40 | PCM.PREANE ---
Preanesthetic Assessment - Procedure Proposed Procedure: exploratory laparoscopy - Anesthesia/Transfusion/Family Hx Anesthesia History: Prior Anesthesia Without Reaction Family History of Anesthesia Reaction: No Transfusion History: No Prior Transfusion(s) - Review of Systems General: No Symptoms Pulmonary: Shortness of Breath (with exertion) Cardiovascular: Dyspnea on Exertion Gastrointestinal: Decreased Appetite, Nausea, Vomiting Neurological: Difficulty Walking (weak now), Weakness Other: Reports: Easy Bleeding, Easy Bruising - Physical Assessment NPO Status Date: 01/07/20 NPO Status Time: 23:50 Vital Signs: Last Vital Signs Temp 98.1 F 01/07/20 11:18 Pulse 88 01/07/20 11:18 Resp 20 01/07/20 11:18 BP 120/62 01/07/20 11:18 Pulse Ox 95 01/07/20 11:18 Height: 5 ft Weight: 59.148 kg ASA Class: 3E Mental Status: Alert & Oriented x3 Airway Class: Mallampati = 2 (poor oral care) Dentition: Reports: Dentures (top and bottom) Thyro-Mental Finger Breadths: 3 Mouth Opening Finger Breadths: 3 ROM/Head Extension: Full Lungs: Clear to Auscultation Cardiovascular: Regular Rate, Regular Rhythm - Lab Values: Laboratory Last Values WBC 9.59 K/mm3 (3.98-10.04) 01/06/20 04:55 RBC 4.71 M/mm3 (3.98-5.22) 01/06/20 04:55 Hgb 13.4 gm/dl (11.2-15.7) 01/06/20 04:55 Hct 40.7 % (34.1-44.9) 01/06/20 04:55 MCV 86.4 fl (79.4-94.8) 01/06/20 04:55 MCH 28.5 pg (25.6-32.2) 01/06/20 04:55 MCHC 32.9 g/dl (32.2-35.5) 01/06/20 04:55 RDW Std Deviation 42.9 fL (36.4-46.3) 01/06/20 04:55 Plt Count 157 K/mm3 (182-369) L 01/06/20 04:55 MPV 10.4 fl (9.4-12.3) 01/06/20 04:55 Neut % (Auto) 83.6 % (34.0-71.1) H 01/06/20 04:55 Lymph % (Auto) 9.9 % (19.3-51.7) L 01/06/20 04:55 Cross % (Auto) 6.3 % (4.7-12.5) 01/06/20 04:55 Eos % (Auto) 0 (0.7-5.8) L 01/06/20 04:55 Baso % (Auto) 0.1 % (0.1-1.2) 01/06/20 04:55 Neut # (Auto) 8.02 K/mm3 (1.56-6.13) H 01/06/20 04:55 Lymph # (Auto) 0.95 K/mm3 (1.18-3.74) L 01/06/20 04:55 Cross # (Auto) 0.60 K/mm3 (0.24-0.36) H 01/06/20 04:55 Eos # (Auto) 0.00 K/mm3 (0.04-0.36) L 01/06/20 04:55 Baso # (Auto) 0.01 K/mm3 (0.01-0.08) 01/06/20 04:55 Manual Slide Review Abnormal smear 01/06/20 04:55 Sodium 138 mEq/L (136-145) 01/06/20 04:55 Potassium 3.9 mEq/L (3.5-5.1) 01/06/20 04:55 Chloride 100 mEq/L (98-107) 01/06/20 04:55 Carbon Dioxide 30 mEq/L (21-32) 01/06/20 04:55 Anion Gap 11.9 (5-15) 01/06/20 04:55 BUN 15 mg/dL (7-18) 01/06/20 04:55 Creatinine 0.9 mg/dL (0.55-1.02) 01/06/20 04:55 Est Cr Clr Drug Dosing 31.04 mL/min 01/06/20 04:55 Estimated GFR (MDRD) 59 mL/min (>60) 01/06/20 04:55 BUN/Creatinine Ratio 16.7 (14-18) 01/06/20 04:55 Glucose 122 mg/dL (83-115) H 01/06/20 04:55 Calcium 8.2 mg/dL (8.5-10.1) L 01/06/20 04:55 Total Bilirubin 1.9 mg/dL (0.2-1.0) H 01/06/20 04:55 Direct Bilirubin 0.40 mg/dl (0.0-0.2) H 01/06/20 04:55 AST 20 U/L (15-37) 01/06/20 04:55 ALT 12 U/L (14-59) L 01/06/20 04:55 Alkaline Phosphatase 40 U/L (46-116) L 01/06/20 04:55 Total Protein 6.3 g/dl (6.4-8.2) L 01/06/20 04:55 Albumin 3.1 g/dl (3.4-5.0) L 01/06/20 04:55 Globulin 3.2 gm/dL 01/06/20 04:55 Albumin/Globulin Ratio 1.0 (1-2) 01/06/20 04:55 Lipase 107 U/L (73-393) 01/04/20 22:11 Urine Color Yellow (Yellow) 01/05/20 00:25 Urine Appearance Clear (Clear) 01/05/20 00:25 Urine pH 7.0 (5.0-8.0) 01/05/20 00:25 Ur Specific [place] 1.020 (1.005-1.030) 01/05/20 00:25 Urine Protein 2+ (Negative) H 01/05/20 00:25 Urine Glucose (UA) Negative (Negative) 01/05/20 00:25 Urine Ketones 1+ (Negative) H 01/05/20 00:25 Urine Occult Blood 2+ (Negative) H 01/05/20 00:25 Urine Nitrite Negative (Negative) 01/05/20 00:25 Urine Bilirubin Negative (Negative) 01/05/20 00:25 Urine Urobilinogen 0.2 (0.2-1.0) 01/05/20 00:25 Ur Leukocyte Esterase Negative (Negative) 01/05/20 00:25 Urine RBC 5-10 /hpf (0-5) H 01/05/20 00:25 Urine WBC 0-5 /hpf (0-5) 01/05/20 00:25 Ur Epithelial Cells 0-5 /hpf (0-5) 01/05/20 00:25 Urine Bacteria Not seen /hpf (FEW) 01/05/20 00:25 Urine Mucus Not seen /hpf (FEW) 01/05/20 00:25 - Allergies Allergies/Adverse Reactions: Allergies Allergy/AdvReac Type Severity Reaction Status Date / Time No Known Allergies Allergy Verified 01/04/20 21:54 - Blood Blood Available: No - Acknowledgements Anesthesia Type Planned: General Anesthesia Pt an Appropriate Candidate for the Planned Anesthesia: Yes Alternatives and Risks of Anesthesia Discussed w Pt/Guardian: Yes Pt/Guardian Understands and Agrees with Anesthesia Plan: Yes PreAnesthesia Questionnaire - Past Health History Medical/Surgical History: Denies Medical/Surgical History HEENT History: Reports: Cataract, Hard of Hearing, Impaired Vision Other HEENT History: Wears glasses and hearing aides Cardiovascular History: Reports: High Cholesterol, Hypertension Respiratory History: Reports: SOB Gastrointestinal History: Reports: GERD, Other (See Below) (small bowel obstruction) Genitourinary History: Reports: UTI, Recurrent 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: Musculoskeletal History: Reports: Arthritis Psychiatric History: Reports: None Endocrine/Metabolic History: Reports: Osteoporosis Oncologic (Cancer) History: Reports: None - Infectious Disease History Infectious Disease History: Reports: Chicken Pox, Measles, Mumps - Past Surgical History HEENT Surgical History: Reports: Cataract Surgery, Tonsillectomy Cardiovascular Surgical History: Reports: None GI Surgical History: Reports: Cholecystectomy Female Surgical History: Reports: None Musculoskeletal Surgical History: Reports: None, Hip Replacement, Other (See Below) Other Musculoskeletal Surgeries/Procedures:: Bilat - SUBSTANCE USE Smoking Status *Q: Never Smoker Tobacco Use Within Last Twelve Months: No Second Hand Smoke Exposure: No Days Per Week of Alcohol Use: 0 Recreational Drug Use History: No - HOME MEDS Home Medications: Home Meds Aspirin [Halfprin] 81 mg PO DAILY 01/04/20 [History] Cholecalciferol (Vitamin D3) [Vitamin D3] 2,000 unit PO DAILY 01/04/20 [History] Denosumab [Prolia] 60 mg .XX ASDIRECTED 01/04/20 [History] Fesoterodine Fumarate [Toviaz] 4 mg PO DAILY 01/04/20 [History] Losartan [Cozaar] 50 mg PO BEDTIME 01/04/20 [History] Omeprazole 20 mg PO DAILY 01/04/20 [History] Pravastatin [Pravachol] 40 mg PO DAILY 01/04/20 [History] Sulfamethoxazole/Trimethoprim [Bactrim 400-80 MG] 1 tab PO DAILY 01/05/20 [ History] - CURRENT (IN HOUSE) MEDS Current Meds: Current Medications Benzocaine (Hurricaine 20% [place]) 1 ml MUCMEM Q4HR PRN PRN Reason: Sore Throat Last Admin: 01/07/20 13:54 Dose: 1 spray Heparin Sodium (Porcine) (Heparin Sodium) 5,000 units SUBCUT Q8H [facility] Last Admin: 01/07/20 08:13 Dose: 5,000 units Hydralazine HCl (Apresoline) 5 mg IVPUSH Q2H PRN PRN Reason: Hypertension Last Admin: 01/05/20 04:32 Dose: 5 mg Potassium Chloride/Dextrose/Sod Cl (D5 1/2 Ns W/ 20 Meq/L Kcl) 1,000 mls @ 75 [facility]ls[facility] Last Admin: 01/07/20 13:54 Dose: 75 mls/hr Ondansetron HCl (Zofran) 4 mg IVPUSH Q6H PRN PRN Reason: Nausea Last Admin: 01/06/20 02:32 Dose: 4 mg Pantoprazole Sodium (Protonix Iv) 40 mg IV Q24H [facility] Last Admin: 01/07/20 08:14 Dose: 40 mg Discontinued Medications Diatrizoate Meglum/Diatrizoate Sod (Gastrografin 37%) 90 ml PO ONETIME ONE Stop: 01/05/20 02:34 Last Admin: 01/05/20 03:27 Dose: 90 ml Sodium Chloride (Normal Saline) 1,000 mls @ 1,000 mls/hr IV ASDIRECTED [facility] Last Admin: 01/04/20 22:28 Dose: 1,000 mls/hr Sodium Chloride (Normal Saline) 1,000 mls @ 1,000 mls/hr IV ASDIRECTED [facility] Last Admin: 01/04/20 23:47 Dose: 1,000 mls/hr Lactated Ringer's (Ringers, Lactated) 1,000 mls @ 75 mls/hr IV ASDIRECTED [facility] Last Admin: 01/06/20 08:43 Dose: 75 mls/hr Pantoprazole Sodium 40 mg/ (Sodium Chloride) 100 mls @ 200 mls/hr IV DAILY AJ Last Admin: 01/05/20 10:30 Dose: Not Given Sodium Chloride (Normal Saline) 500 mls @ 500 mls/hr IV BOLUS ONE Stop: 01/06/20 20:41 Last Admin: 01/06/20 19:56 Dose: 500 mls/hr Iopamidol (Isovue-300 (61%)) 100 ml IVPUSH ONETIME ONE Stop: 01/05/20 02:34 Last Admin: 01/05/20 03:27 Dose: 100 ml Losartan Potassium (Cozaar) 50 mg PO ONETIME STA Stop: 01/04/20 23:17 Last Admin: 01/04/20 23:25 Dose: 50 mg Ondansetron HCl (Zofran) 4 mg IVPUSH ONETIME ONE Stop: 01/04/20 22:16 Last Admin: 01/04/20 22:28 Dose: 4 mg Sodium Chloride (Saline Flush) 10 ml FLUSH ONETIME PRN PRN Reason: KEEP VEIN OPEN Last Admin: 01/05/20 03:27 Dose: 10 ml
[2020-01-07] MEDS ORDERED: Sodium Chloride 0.9% 500 ML IV ONE (18:53)
[2020-01-07] MEDS ORDERED: Bisacodyl 10 MG Supp RECTAL ONE (19:03)
[2020-01-08] MEDS: D5 1/2 NS w/ 20 mEq/L KCl 1,000 ML IV SCH (04:26)
[2020-01-08] MEDS: Heparin Sodium 5,000 Units/ML Vial SUBCUT SCH ×3 (04:26→16:44)
[2020-01-08] MEDS ORDERED: Calcium Gluconate 10% 1 GM/10 ML SDV IVPUSH ONE (07:45)
--- NOTE | 2020-01-08 08:01 | PCM.SN.2 ---
- Free Text/Narrative Note: S: no acute events. No BM after suppository last night. No nausea or bloating. Reports No flatus. NG output recorded at about 50 cc/24hrs, although wall suction was turned off at the time of exam this morning. O: AF-VSS Minor hypomagnesemia, hypocalcemia this morning, labs otherwise unremarkable. NG with thin clear/brown output Abd with mild distention, soft, nontender, tympanitic with percussion A: Small bowel obstruction. Very little output from NG in past 24 hours, although it is not clear how long the tube has been off suction. No major residual on restarting suction. P: Monitor NG output for another hour on suction; if no significant output plan for NG removal. No plan for OR at this time.
--- NOTE | 2020-01-08 08:31 | CR ---
Abdomen: Upright view of the abdomen was obtained. Comparison: Prior CT abdomen and pelvis study of 01/05/20 hand prior abdominal x-ray also performed on 01/05/20. Several slightly prominent loops of small bowel are noted within the left upper abdomen. Bowel gas pattern is otherwise unremarkable. 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 Surgical clips are seen from prior cholecystectomy. Bony structures are osteopenic. No free air is seen. Impression: 1. Several slightly prominent small bowel loops remain within the left upper abdomen. 2. Other findings believed to be incidental as described above. Diagnostic code #3 This report was dictated in MDT
[2020-01-08] MEDS ORDERED: Magnesium Sulfate/Water 2 GM in Premix Bag 1 BAG IV ONE (09:00)
[2020-01-08] MEDS: Pantoprazole 40 MG Vial IV SCH (09:11)
[2020-01-08] MEDS ORDERED: Polyethylene Glycol 3350 Powder 17 GM Packet PO ONE (18:06)
[2020-01-09] MEDS: Heparin Sodium 5,000 Units/ML Vial SUBCUT SCH ×2 (01:02→08:47)
[2020-01-09] MEDS: Pantoprazole 40 MG Vial IV SCH (09:38)
[2020-01-09] MEDS ORDERED: Polyethylene Glycol 3350 Powder 17 GM Packet PO ONE (10:06)
--- NOTE | 2020-01-09 10:11 | PCM.DCSUM1 ---
Discharge Summary - Hospital Course Free Text/Narrative:: Admitted 01/06/2020 with signs and symptoms of small bowel obstruction. Managed with IV fluids and NG decompression, with over 1L/24 hours output for the first 48 hours. The output decreased, he symptoms improved, and she began passing flatus on 01/07. She was able to tolerate a regular diet starting 01/07 and continued to do well, passing flatus. She was deemed fit for discharge to home on 01/08. Modified Rich Scale: No Symptoms at All Modified Rich Scale Score: 0 - Discharge Data Discharge Date: 01/09/20 Discharge Disposition: Home, Self-Care 01 Condition: Good - Referral to Home Health Primary Care Physician: Ross Alvares MD - Patient Summary/Data Operative Procedure(s) Performed: none - Patient Instructions Diet: Usual Diet as Tolerated Activity: As Tolerated Showering/Bathing: May Shower Notify Provider of: Increased Pain, Nausea and/or Vomiting - Discharge Plan *PRESCRIPTION DRUG MONITORING PROGRAM REVIEWED*: Not Applicable *COPY OF PRESCRIPTION DRUG MONITORING REPORT IN PATIENT IVA: Not Applicable Home Medications: Home Meds Aspirin [Halfprin] 81 mg PO DAILY 01/04/20 [History] Cholecalciferol (Vitamin D3) [Vitamin D3] 2,000 unit PO DAILY 01/04/20 [History] Denosumab [Prolia] 60 mg .XX ASDIRECTED 01/04/20 [History] Fesoterodine Fumarate [Toviaz] 4 mg PO DAILY 01/04/20 [History] Losartan [Cozaar] 50 mg PO BEDTIME 01/04/20 [History] Omeprazole 20 mg PO DAILY 01/04/20 [History] Pravastatin [Pravachol] 40 mg PO DAILY 01/04/20 [History] Sulfamethoxazole/Trimethoprim [Bactrim 400-80 MG] 1 tab PO DAILY 01/05/20 [ History] Oxygen Therapy Mode: Room Air Referrals: Ross Alvares MD [Primary Care Provider] - - Discharge Summary/Plan Comment DC Time >30 min.: No Discharge Summary/Plan Comment: Resume all home medications. Resume regular diet. No activity restrictions. Follow up with surgery as needed. - Patient Data Vitals - Most Recent: Last Vital Signs Temp 36.4 C 01/09/20 08:46 Pulse 78 01/09/20 08:46 Resp 18 01/09/20 08:46 BP 101/69 01/09/20 08:46 Pulse Ox 96 01/09/20 08:46 Weight - Most Recent: 59.08 kg I&O - Last 24 hours: Intake & Output 01/08/20 01/09/20 01/09/20 22:59 06:59 14:59 Intake Total 1770 Output Total 650 Balance 1120 Med Orders - Current: Current Medications Benzocaine (Hurricaine 20% [place]) 1 ml MUCMEM Q4HR PRN PRN Reason: Sore Throat Last Admin: 01/07/20 15:26 Dose: 1 spray Heparin Sodium (Porcine) (Heparin Sodium) 5,000 units SUBCUT Q8H [facility] Last Admin: 01/09/20 08:47 Dose: 5,000 units Hydralazine HCl (Apresoline) 5 mg IVPUSH Q2H PRN PRN Reason: Hypertension Last Admin: 01/05/20 04:32 Dose: 5 mg Pantoprazole Sodium (Protonix Iv) 40 mg IV Q24H [facility] Last Admin: 01/09/20 09:38 Dose: Not Given Polyethylene Glycol (Miralax) 17 gm PO ONETIME ONE Stop: 01/09/20 10:07 Discontinued Medications Bisacodyl (Dulcolax) 10 mg RECTAL ONETIME ONE Stop: 01/07/20 19:04 Last Admin: 01/07/20 20:36 Dose: 10 mg Diatrizoate Meglum/Diatrizoate Sod (Gastrografin 37%) 90 ml PO ONETIME ONE Stop: 01/05/20 02:34 Last Admin: 01/05/20 03:27 Dose: 90 ml Heparin Sodium (Porcine) (Heparin Sodium) 5,000 units SUBCUT Q8H [facility] Last Admin: 01/08/20 04:26 Dose: 5,000 units Sodium Chloride (Normal Saline) 1,000 mls @ 1,000 mls/hr IV ASDIRECTED [facility] Last Admin: 01/04/20 22:28 Dose: 1,000 mls/hr Sodium Chloride (Normal Saline) 1,000 mls @ 1,000 mls/hr IV ASDIRECTED [facility] Last Admin: 01/04/20 23:47 Dose: 1,000 mls/hr Lactated Ringer's (Ringers, Lactated) 1,000 mls @ 75 mls/hr IV ASDIRECTED [facility] Last Admin: 01/06/20 08:43 Dose: 75 mls/hr Pantoprazole Sodium 40 mg/ (Sodium Chloride) 100 mls @ 200 mls/hr IV DAILY [facility] Last Admin: 01/05/20 10:30 Dose: Not Given Potassium Chloride/Dextrose/Sod Cl (D5 1/2 Ns W/ 20 Meq/L Kcl) 1,000 mls @ 75 mls/hr IV ASDIRECTED [facility] Last Admin: 01/08/20 04:26 Dose: 75 mls/hr Sodium Chloride (Normal Saline) 500 mls @ 500 mls/hr IV BOLUS ONE Stop: 01/06/20 20:41 Last Admin: 01/06/20 19:56 Dose: 500 mls/hr Sodium Chloride (Normal Saline) 500 mls @ 500 mls/hr IV ONETIME ONE Stop: 01/07/20 19:52 Last Admin: 01/07/20 20:37 Dose: 500 mls/hr Magnesium Sulfate 2 gm/ Premix 50 mls @ 25 mls/hr IV ONETIME ONE Stop: 01/08/20 10:59 Last Admin: 01/08/20 09:17 Dose: 25 mls/hr Calcium Gluconate 1 gm/ Sodium (Chloride) 60 mls @ 180 mls/hr IV ONETIME ONE Stop: 01/08/20 08:49 Last Admin: 01/08/20 08:47 Dose: 180 mls/hr Iopamidol (Isovue-300 (61%)) 100 ml IVPUSH ONETIME ONE Stop: 01/05/20 02:34 Last Admin: 01/05/20 03:27 Dose: 100 ml Losartan Potassium (Cozaar) 50 mg PO ONETIME STA Stop: 01/04/20 23:17 Last Admin: 01/04/20 23:25 Dose: 50 mg Ondansetron HCl (Zofran) 4 mg IVPUSH ONETIME ONE Stop: 01/04/20 22:16 Last Admin: 01/04/20 22:28 Dose: 4 mg Ondansetron HCl (Zofran) 4 mg IVPUSH Q6H PRN PRN Reason: Nausea Last Admin: 01/06/20 02:32 Dose: 4 mg Polyethylene Glycol (Miralax) 17 gm PO ONETIME ONE Stop: 01/08/20 18:07 Last Admin: 01/08/20 18:20 Dose: 17 gm Sodium Chloride (Saline Flush) 10 ml FLUSH ONETIME PRN PRN Reason: KEEP VEIN OPEN Last Admin: 01/05/20 03:27 Dose: 10 ml
== END 2020-01-09 15:40 | disposition home or self-care (01) | DRG 390 ==
LOC: JD.ED 21:44 → JD.MS 01-05 04:33
PROVIDERS: ADMIT Surgery; ATTEND Surgery
DX: K56.609 Unspecified intestinal obstruction, unspecified as to partial versus complete obstruction (principal); E83.42 Hypomagnesemia; E83.51 Hypocalcemia; E78.00 Pure hypercholesterolemia, unspecified; H54.7 Unspecified visual loss; K21.9 Gastro-esophageal reflux disease without esophagitis; M81.0 Age-related osteoporosis without current pathological fracture; Z96.649 Presence of unspecified artificial hip joint; H91.90 Unspecified hearing loss, unspecified ear; I10 Essential (primary) hypertension; Z87.440 Personal history of urinary (tract) infections; Z98.49 Cataract extraction status, unspecified eye; Z90.49 Acquired absence of other specified parts of digestive tract; Z79.82 Long term (current) use of aspirin; Z79.899 Other long term (current) drug therapy
CPT/HCPCS: 36415; 51798; 74018; 74018-26; 74019; 74019-26; 74177; 74177-26; 80048; 80053; 81001; 82248; 83690; 83735; 85025; 96361; 96374; 99285; 99285-25; A9270-GY; C9113; J0360; J0610; J1644; J2405; J3475; J3480; J7030; J7050; J7120; Q9963; Q9967; U0002